=== PATIENT | female | born 1980 | race Caucasian/White ===

== ENCOUNTER 2018-05-19 12:11 | Emergency (ER) | payer OTHER ==
[~2018-05-19] VITALS: Ht 157.5 cm; Wt 49.4 kg
[2018-05-19 12:54] LABS: *BILIRUBIN,URIN NEGATIVE (NEGATIVE); *BLOOD, URINE Trace-intact (NEGATIVE); *CLARITY,URINE CLEAR (CLEAR); *COLOR,URINE YELLOW (YELLOW); *KETONES,URINE NEGATIVE (NEGATIVE); *PROTEIN,URINE NEGATIVE (NEGATIVE); *UROBILINOGEN,URINE 0.2 E.U./dl (NORMAL); LEUKOCYTE ESTERASE ,URINE NEGATIVE (NEGATIVE); NITRITE, URINE NEGATIVE (NEGATIVE); UGLUCOSE NEGATIVE (NEGATIVE)
--- NOTE | 2018-05-19 12:54 | NUR ---
chaperoned md with pelvix exam. pt tolerated well.
[2018-05-19 12:56] LABS: *URINE HCG, QUAL NEGATIVE (NEGATIVE); BACTERIA,URINE FEW /HPF (NONE SEEN); RBC,URINE 0-3 /HPF (0-3); SQUAMOUS EPITHELIAL CELL,UR FEW /HPF (NONE SEEN); WBC,URINE 0-3 /HPF (0-3)
== END 2018-05-19 13:10 | disposition home or self-care (01) ==
LOC: ER 12:11
DX: R10.2 Pelvic and perineal pain (principal); Z88.2 Allergy status to sulfonamides
CPT/HCPCS: 76856; 81001; 84703; 99285; A4663

== ENCOUNTER 2021-01-24 08:23 | Emergency (ER) | payer OTHER ==
[~2021-01-24] VITALS: Ht 157.5 cm; Wt 48.1 kg
[2021-01-24] MEDS ORDERED: NITR100C11 PO (08:34)
--- NOTE | 2021-01-24 08:35 | NUR ---
at bedside for assessment
[2021-01-24 08:44] LABS: *BILIRUBIN,URIN NEGATIVE (NEGATIVE); *BLOOD, URINE NEGATIVE (NEGATIVE); *CLARITY,URINE CLEAR (CLEAR); *COLOR,URINE YELLOW (YELLOW); *KETONES,URINE NEGATIVE (NEGATIVE); *UROBILINOGEN,URINE 0.2 E.U./dl (NORMAL); LEUKOCYTE ESTERASE ,URINE NEGATIVE (NEGATIVE); NITRITE, URINE NEGATIVE (NEGATIVE); UGLUCOSE NEGATIVE (NEGATIVE)
[2021-01-24 08:46] LABS: *URINE HCG, QUAL NEGATIVE (NEGATIVE)
[2021-01-24] MEDS ORDERED: OXYC-133 PO (09:18)
--- NOTE | 2021-01-24 09:25 | NUR ---
Patient discharged to home in stable condition. Able to ambulate with steady gait. Written and verbal after care instructions given. No signs of acute distress. Patient verbalizes understanding of instructions. Stressed follow up or return to ER for worsening s/s.
[2021-01-24 09:28] VITALS: BP 105/75
== END 2021-01-24 09:29 | disposition home or self-care (01) ==
LOC: ER 08:23
DX: N83.202 Unspecified ovarian cyst, left side (principal); D25.9 Leiomyoma of uterus, unspecified; Z88.2 Allergy status to sulfonamides
CPT/HCPCS: 76856; 84703; A4663

== ENCOUNTER 2021-01-28 19:41 | Emergency (ER) | payer OTHER ==
[~2021-01-28] VITALS: Ht 167.6 cm; Wt 48.1 kg
[~2021-01-28 19:41] MED LIST: NITR100C11 PO; OXYC-133 PO
--- NOTE | 2021-01-28 20:10 | NUR ---
pt. c/o llq abdominal pain radiating to the back for the last week. Pt. says she was here several days ago and recieved an ultrasound but her OB wanted her to return to get a CT scan done. Pt. states pain is 7/10. Pt. is stable. Pt.'s is at the bedside.
[2021-01-28 20:53] LABS: BASOPHILS # (AUTO) 0.1 K/uL (0.0-8.0); EOSINOPHILS # (AUTO) 0.4 K/uL (0.0-0.7); EOSINOPHILS % (AUTO) 6.1 % (0.0-7.0); HEMATOCRIT 37.5 % (31.2-41.9); HEMOGLOBIN 12.8 g/dL (10.9-14.3); LYMPHOCYTES # (AUTO) 2.9 K/uL (20.0-40.0); MEAN CORPUSCULAR HEMOGLOBIN 31.8 uug (24.7-32.8); MEAN CORPUSCULAR HGB CONC 34 g/dL (32.3-35.6); MEAN CORPUSCULAR VOLUME 93.2 fL (75.5-95.3); MONOCYTES # (AUTO) 0.4 K/uL (2.0-10.0); MONOCYTES % (AUTO) 6.5 % (0.0-11.0); NEUTROPHILS # (AUTO) 2.4 K/uL (1.8-8.9); NEUTROPHILS % (AUTO) 39.4 % (38.5-71.5); PLATELET COUNT (AUTO) 281 K/uL (179-408); RED BLOOD CELL COUNT(AUTO) 4.02 MIL/uL (3.63-4.92); WHITE BLOOD COUNT (AUTO) 6.1 K/uL (3.8-11.8)
[2021-01-28 21:05] LABS: *BILIRUBIN,URIN NEGATIVE (NEGATIVE); *BLOOD, URINE NEGATIVE (NEGATIVE); *CLARITY,URINE CLEAR (CLEAR); *COLOR,URINE YELLOW (YELLOW); *KETONES,URINE NEGATIVE (NEGATIVE); *UROBILINOGEN,URINE 0.2 E.U./dl (NORMAL); LEUKOCYTE ESTERASE ,URINE NEGATIVE (NEGATIVE); NITRITE, URINE NEGATIVE (NEGATIVE); PH,URINE 7.5 (5.0-8.0); UGLUCOSE NEGATIVE (NEGATIVE)
[2021-01-28 21:06] LABS: *URINE HCG, QUAL NEGATIVE (NEGATIVE)
[2021-01-28 21:12] LABS: CREATININE 0.8 mg/dL (0.6-1.3); POTASSIUM 3.8 mmol/L (3.5-5.1)
[2021-01-28 21:13] LABS: BILIRUBIN,TOTAL 0.3 mg/dL (0.2-1.0)
--- NOTE | 2021-01-28 21:33 | NUR ---
ultrasound is at bedside
[2021-01-28] MEDS ORDERED: IV NORMAL SALINE 250 ML IV ONE (21:41)
[2021-01-28] MEDS ORDERED: IOHEXOL 300MG/ML 100 ML INFUS..BTL ONE (21:41)
[2021-01-28] MEDS ORDERED: SWABABLE VALVE TRANSFER SET EA MC ONE (21:41)
--- NOTE | 2021-01-28 21:42 | NUR ---
Dr. Rawls at bedside
[2021-01-28] MEDS ORDERED: ONDA4TAB5 PO (21:50)
--- NOTE | 2021-01-28 21:53 | NUR ---
Pt. taken to CT
[2021-01-28 22:48] VITALS: BP 96/61
--- NOTE | 2021-01-28 22:48 | NUR ---
IV removed. Catheter intact and site benign. Pressure and 4x4 gauze applied to site. No bleeding noted.
--- NOTE | 2021-01-28 22:48 | NUR ---
Patient discharged to home in stable condition. Written and verbal after care instructions given. Patient verbalizes understanding of instructions. Stressed follow up or return to ER for worsening s/s.
== END 2021-01-28 22:49 | disposition home or self-care (01) ==
LOC: ER 19:41
DX: D25.9 Leiomyoma of uterus, unspecified (principal); N83.291 Other ovarian cyst, right side; G89.29 Other chronic pain; R10.2 Pelvic and perineal pain; R16.0 Hepatomegaly, not elsewhere classified; Z88.2 Allergy status to sulfonamides; Z87.440 Personal history of urinary (tract) infections
CPT/HCPCS: 36415; 74177; 76856; 80053; 81003; 84703; 85025; 85610; 99285; Q9967; A4663; J7050